=== PATIENT | male | born 1985 | race Caucasian/White ===

== ENCOUNTER 2016-10-17 17:59 | Emergency (ER) | payer BC ==
[2016-10-17 19:50] VITALS: BP 125/74
--- NOTE | 2016-10-17 19:57 | UC ---
Complaint Male HPI - HPI Summary HPI Summary: 31 y/o old male presents to the urgent care c/o Rt groin pain since 10/14/16. He states he has been lifting some boxes at work lately and he felt the pain more yesterday. He is concern with a inguinal hernia. About 2 months ago he felt the same and symptoms resolved after couple of days. He states the pasin radiates to his RT testicle. Today the pain is not longer there. Pt denies fever , SOB, chest pain, N/V/D, No Hx of STD's or urinary problems. Pt has not other complains - History of Current Complaint Chief Complaint: UCGeneralIllness Stated Complaint: PERSONAL Time Seen by Provider: 10/17/16 19:46 Hx Obtained From: Patient Onset/Duration: Gradual Onset, Lasting Days, Still Present Timing: Lasting Seconds Severity Initially: Mild Severity Currently: None Pain Intensity: 0 Pain Scale Used: 0-10 Numeric Location: Groin - RT side Aggravating Factor(s): Nothing Alleviating Factor(s): Nothing Associated Signs And Symptoms: Positive: Negative. Negative: Back Pain, Fever, Hematuria, Dysuria, Constipation, Rectal Pain, Nausea, Vomiting(# Of Episodes =) , Penile Swelling, Penile Discharge - Allergies/Home Medications Allergies/Adverse Reactions: Allergies Allergy/AdvReac Type Severity Reaction Status Date / Time No Known Allergies Allergy Verified 10/17/16 19:36 PMH/Surg Hx/FS Hx/Imm Hx Previously Healthy: Yes - Surgical History Surgical History: None - Family History Family History: Prostate cancer - Social History Occupation: Employed Full-time Lives: With Family Alcohol Use: Weekly Alcohol Amount: 1-2 weeks Substance Use Type: Marijuana Substance Use Comment - Amount & Last Used: occasionally Smoking Status (MU): Current Some Day Smoker Type: Smokeless Tobacco Amount Used/How Often: 1 pack per day Have You Smoked in the Last Year: No When Did the Patient Quit Smoking/Using Tobacco: 10yrs Household Exposure Type: Cigarettes Review of Systems Constitutional: Negative Skin: Negative Eyes: Negative ENT: Negative Respiratory: Negative Cardiovascular: Negative Gastrointestinal: Negative Genitourinary: Other - RT groin pain s/p lifting boxes Motor: Negative Neurovascular: Negative Musculoskeletal: Negative Neurological: Negative Psychological: Negative All Other Systems Reviewed And Are Negative: Yes Physical Exam Triage Information Reviewed: Yes Appearance: Well-Appearing, No Pain Distress, Well-Nourished, Thin Vital Signs: Initial Vital Signs Temp 98.3 F 10/17/16 19:36 Pulse 60 10/17/16 19:36 Resp 18 10/17/16 19:36 BP 125/74 10/17/16 19:36 Pulse Ox 100 10/17/16 19:36 Vital Signs Reviewed: Yes Eye Exam: Normal Eyes: Positive: Conjunctiva Clear - PERRLA, EOMI, fundi grossly normal ENT Exam: Normal ENT: Positive: Normal ENT inspection, Hearing grossly normal, Pharynx normal, TMs normal Dental Exam: Normal Neck exam: Normal Neck: Positive: Supple, Nontender, No Lymphadenopathy Respiratory Exam: Normal Respiratory: Positive: Chest non-tender, Lungs clear, Normal breath sounds Cardiovascular Exam: Normal Cardiovascular: Positive: RRR, No Murmur, Pulses Normal, Brisk Capillary Refill Abdominal Exam: Normal Abdomen Description: Positive: Nontender, No Organomegaly, Soft, Other: - No masses observed or palpated in the RT inguinal canal after Pt cough, no tenderness eliceted. Genital examination WNL, no lesions or masses palpated or tenderness over the testicles. Femoral pulses WNL. No penile discharge or rashes observed. Negative: CVA Tenderness (R), CVA Tenderness (L) Bowel Sounds: Positive: Present Musculoskeletal Exam: Normal Musculoskeletal: Positive: Strength Intact, ROM Intact, No Edema Neurological Exam: Normal Psychological Exam: Normal Skin Exam: Normal Complaint Male Course/Dx - Course Course Of Treatment: 31 y/o old male presents to the urgent care c/o Rt groin pain since 10/14/16. He states he has been lifting some boxes at work lately and he felt the pain more yesterday. He is concern with a inguinal hernia. About 2 months ago he felt the same and symptoms resolved after couple of days. He states the pasin radiates to his RT testicle. Today the pain is not longer there. Pt denies fever, SOB, chest pain, N/V/D, No Hx of STD's or urinary problems.Hx obtained. PE of male is WNL. Pt educated on inguinal or testicular hernias. If pain returns PT advised to f/u immediately with his PCP for further evaluation and treatment. Pt understood and agreed. - Differential Dx/Diagnosis Differential Diagnosis/HQI/PQRI: Incarcerated Hernia, Testicular Torsion, Urinary Tract Infection, Other - Inguinal hernia, testicular hernia, muscle strain Provider Diagnoses: 1-RT inguinal pain Discharge - Discharge Plan Condition: Stable Disposition: HOME Patient Education Materials: Inguinal Hernia (ED), Testicle Pain (ED) Referrals: Stephen Valdez MD [Primary Care Provider] - If Needed Additional Instructions: Please read the educational information and if symptoms appear again please f/u with your PCP for further evaluation and treatment
== END 2016-10-17 20:12 | disposition home or self-care (01) ==
LOC: UCCORT 17:59
DX: R10.31 Right lower quadrant pain (principal); F12.90 Cannabis use, unspecified, uncomplicated; F17.210 Nicotine dependence, cigarettes, uncomplicated
CPT/HCPCS: 99211; G0463

== ENCOUNTER 2017-07-06 17:47 | Emergency (ER) | payer SELFPAY | END 2017-07-06 19:49 | disposition left against medical advice (07) | LOC: UCCORT 17:47 | DX: S61.412A Laceration without foreign body of left hand, initial encounter (principal); Z53.21 Procedure and treatment not carried out due to patient leaving prior to being seen by health care provider ==

== ENCOUNTER 2018-01-12 09:28 | Emergency (ER) | payer BC ==
[2018-01-12 09:57] VITALS: BP 119/60
--- NOTE | 2018-01-12 10:21 | UC ---
Complaint Male HPI - HPI Summary HPI Summary: 32-year-old male presents with one-week history of left testicular pain. Pain is mild but constant. Occasionally radiates into the left lower abdomen. Denies aggravating factors. States pain subsides if he puts pressure on the left lower abdomen. Denies fever, chills, back or flank pain, nausea, vomiting , diarrhea, dysuria, frequency, urgency, hematuria, penile lesions or discharge. Patient had similar episode of right testicular pain on 10/17/2016 and was evaluated at this facility at that time. Records reviewed. Patient was pain-free at the time of that examination therefore discharged with instructions to return if pain returned. Patient does not have concerns for ST denies. Monogamous relationship with his spouse of 10 years. - History of Current Complaint Chief Complaint: UCGeneralIllness Stated Complaint: PERSONAL Time Seen by Provider: 01/12/18 10:00 Hx Obtained From: Patient Onset/Duration: Gradual Onset, Lasting Weeks - 1 Timing: Constant Severity Currently: Mild Pain Intensity: 5 Location: Testicle - left Radiates to: LLQ Aggravating Factor(s): Nothing Alleviating Factor(s): Other - Pressure to LLQ Associated Signs And Symptoms: Negative: Back Pain, Fever, Hematuria, Dysuria, Constipation, Blood in Stool, Rectal Pain, Appetite, Nausea, Vomiting(# Of Episodes =), Penile Swelling, Penile Discharge Prior STD Hx: negative - Risk Factors Testicular Torsion: Negative - Allergies/Home Medications Allergies/Adverse Reactions: Allergies Allergy/AdvReac Type Severity Reaction Status Date / Time No Known Allergies Allergy Verified 01/12/18 09:50 Home Medications: Home Medications Acetaminophen [Tylenol Extra Strength] 1,000 mg PO Q4HR PRN 01/12/18 [History Confirmed 01/12/18] PMH/Surg Hx/FS Hx/Imm Hx Previously Healthy: Yes - Denies significant PMH - Surgical History Surgical History: None - Family History Family History: Prostate cancer - Social History Occupation: Employed Full-time Lives: With Family Alcohol Use: Weekly Alcohol Amount: weekends Substance Use Type: Marijuana Substance Use Comment - Amount & Last Used: socially Smoking Status (MU): Former Smoker Type: Cigarettes Amount Used/How Often: 1 pack per day Have You Smoked in the Last Year: No When Did the Patient Quit Smoking/Using Tobacco: 11/2015 Household Exposure Type: Cigarettes Review of Systems Constitutional: Negative Skin: Negative Cardiovascular: Negative Gastrointestinal: Negative Genitourinary: Other - See HPI Is Patient Immunocompromised?: No All Other Systems Reviewed And Are Negative: Yes Physical Exam Triage Information Reviewed: Yes Appearance: Well-Appearing, No Pain Distress, Well-Nourished Vital Signs: Initial Vital Signs Temp 98 F 01/12/18 09:50 Pulse 57 01/12/18 09:50 Resp 15 01/12/18 09:50 BP 119/60 01/12/18 09:50 Pulse Ox 99 01/12/18 09:50 Vital Signs Reviewed: Yes Respiratory: Positive: Lungs clear, Normal breath sounds, No respiratory distress Cardiovascular: Positive: RRR, No Murmur Abdomen Description: Positive: Nontender, No Organomegaly, Soft. Negative: CVA Tenderness (R), CVA Tenderness (L), Distended, Guarding Bowel Sounds: Positive: Present Male Genital Exam: Positive: No Hernia, Other - + bilateral cremasteric reflex. Negative: Epididymal Tenderness, Erythema, Hernia Mass, Inguinal Tenderness, Lesions, Scrotum Tenderness (R), Scrotum Tenderness (L), Testicular Tenderness ( R), Testicular Tenderness (L), Urethral Discharge Neurological: Positive: Alert Skin Exam: Normal Diagnostics - Laboratory Diagnostic Studies Completed/Ordered: POC UA WNL. Urine culture pending. - Radiology No standard instances Radiology Interpretation Completed By: Radiologist Summary of Radiographic Findings: Patient Name: ISABELLE CHRISTENSEN Medical Record#: [id number]. Ordering Physician: Wilfredo Reyez NP Acct.#: [id number]. : 1985 Age: 32 Sex: M Location: [facility]. Exam Date: 01/12/18 1016 ADM Status: REG ER. Order Information: US TESTICULAR. Accession Number: [id number]. CPT: 27817. INDICATION: Left testicular pain for 1 week. COMPARISON: There are no relevant prior studies available for comparison. TECHNIQUE: Multiple real-time images of the testicles were obtained including color. Doppler images and Doppler tracings. FINDINGS: The testicles are normal in size, shape and echogenicity. The right testicle. measured 4.4 x 2.2 x 3.4 cm and the left testicle measured 4.5 x 1.9 x 3.2 cm. No intratesticular mass is seen. There is symmetric vascular flow within both testicles. There is a small 5 x 4 x 4 mm right epididymal cyst. There is a small hydrocele on the. left side. Note is made of a small left testicular appendage. IMPRESSION: 1. NO EVIDENCE FOR TESTICULAR TORSION OR EPIDIDYMITIS. 2. SMALL LEFT HYDROCELE. 3. SMALL RIGHT EPIDIDYMAL CYST. Complaint Male Course/Dx - Course Course Of Treatment: 32 year old male with 1 week history of left testicular pain. Exam unremarkable. POC UA WNL. Testicular US revealed small left hydrocele and small right testicular cyst. I have sent urine for culture. Low suspicion for STI, hernia, or appendicitis. Recommend OTC analgesics for pain. Follow up with urology in 1 week. Warning symptoms reviewed with patient. Verbalizes understanding and agrees with POC. - Differential Dx/Diagnosis Differential Diagnosis/HQI/PQRI: Epididymitis, Incarcerated Hernia, Testicular Torsion, Urinary Tract Infection, Other - Nephrolithiasis Provider Diagnoses: Left testicular pain Discharge - Sign-Out/Discharge Documenting (check all that apply): Patient Departure All imaging exams completed and their final reports reviewed: Yes - Discharge Plan Condition: Stable Disposition: HOME Patient Education Materials: Testicle Pain (ED) Referrals: Stephen Valdez MD [Primary Care Provider] - Mynor Tanner MD [Medical Doctor] - 7 Days (Call for appointment) Additional Instructions: Your testicular ultrasound did not show any evidence of testicular torsion or epididymitis. There was a small hydrocele (fluid-filled sac) on the left testicle and a small cyst on the right testicle. These are typically benign and unlikely to be the cause of your pain. The rest of exam was unmarkable. We will be sending the urine for a culture to see if any bacteria grow out. Take acetaminophen (Tylenol) or ibuprofen (Advil, Motrin) according to directions as needed for pain. Follow up with Dr. Tanner, urology, in 1 week for further evaluation especially if pain persists. Call for appointment. Seek immediate medical attention in the emergency room if you develop fever greater than 100.5 F, have increased pain, swelling of the scrotum or testicle, difficulty urinating, blood in your urine, severe abdominal pain, persistent vomiting, or any worsening of symptoms - Billing Disposition and Condition Condition: STABLE Disposition: Home
== END 2018-01-12 11:31 | disposition home or self-care (01) ==
LOC: UCCORT 09:28
DX: N43.3 Hydrocele, unspecified (principal); N50.3 Cyst of epididymis; F12.90 Cannabis use, unspecified, uncomplicated; Z87.891 Personal history of nicotine dependence
CPT/HCPCS: 76870; 81003; 87086; 99211; G0463